=== PATIENT | female | born 1995 | race Caucasian/White ===

== ENCOUNTER 2017-07-29 05:26 | Day surgery (SDC) | payer OTHER ==
[2017-07-29 06:44] LABS: ADD MAN DIFF? NO
[2017-07-29 06:52] LABS: WHITE BLOOD COUNT 11.1 10^3/ul (4.8-10.8)
[2017-07-29 06:52] LABS: BASOPHIL # 0.1 10^3/ul (0.0-0.1); BASOPHILS % 0.4 % (0.0-2.0); EOSINOPHILS # 0.2 10^3/ul (0.0-0.5); EOSINOPHILS % 1.8 % (0.0-7.0); HEMATOCRIT 35.2 % (37.0-47.0); HEMOGLOBIN 11.9 g/dl (12.0-16.0); LYMPHOCYTES # 2.8 10^3/ul (0.8-2.9); MEAN CORPUSCULAR HEMOGLOBIN 30.6 pg (29.0-33.0); MEAN CORPUSCULAR HGB CONC 33.8 g/dl (32.0-37.0); MEAN CORPUSCULAR VOLUME 90.5 fl (82.0-101.0); MEAN PLATELET VOLUME 9.9 fl (7.4-10.4); MONOCYTES % 9.2 % (0.0-11.0); NEUTROPHIL # 7.1 10^3/ul (1.6-7.5); NEUTROPHILS % 63.3 % (39.0-77.0); PLATELET COUNT 417 10^3/UL (140-415); RED BLOOD COUNT 3.89 10^6/ul (4.20-5.40); RED CELL DISTRIBUTION WIDTH 13.2 % (11.5-14.5)
[2017-07-29] MEDS ORDERED: FAMOTIDINE 20 MG INJ (07:01)
[2017-07-29] MEDS ORDERED: MIDAZOLAM 1 MG/ML 2 ML INJ (07:01)
[2017-07-29] MEDS ORDERED: PROPOFOL 40 ML (07:01)
[2017-07-29] MEDS ORDERED: FENTAnyl 50 MCG/ML VIAL (07:02)
[2017-07-29] MEDS ORDERED: DEXAMETHASONE 4 MG/ML 1 ML INJ (07:03)
[2017-07-29] MEDS ORDERED: ROCURONIUM 50 MG INJ (07:03)
[2017-07-29] MEDS ORDERED: ONDANSETRON 4 MG INJ (07:03)
[2017-07-29] MEDS ORDERED: LIDOCAINE 2% (SDV) 5 ML INJ (07:03)
[2017-07-29] MEDS ORDERED: ACETAMINOPHEN 1000MG/100ML IV 100 ML (07:03)
[2017-07-29 07:16] LABS: ALANINE AMINOTRANSFERASE 42 IU/L (13-69); ALBUMIN 4.1 g/dl (3.3-4.9); ALBUMIN/GLOBULIN RATIO 1.36; ALKALINE PHOSPHATASE 78 IU/L (42-121); ANION GAP 14 (8-16); ASPARTATE AMINO TRANSFERASE 23 IU/L (15-46); BILIRUBIN,INDIRECT 0.1 mg/dl (0-1.1); BILIRUBIN,TOTAL 0.1 mg/dl (0.2-1.3); CARBON DIOXIDE 27 mmol/L (21-31); CHLORIDE 104 mmol/L (97-110); GLUCOSE 90 mg/dl (70-220); TOTAL PROTEIN 7.1 g/dl (6.1-8.1)
[2017-07-29 07:19] LABS: BLOOD UREA NITROGEN 8 mg/dl (7-20); CALCIUM 8.8 mg/dl (8.4-10.2); CREATININE 0.54 mg/dl (0.44-1.00); POTASSIUM 4.1 mmol/L (3.5-5.1); SODIUM 141 mmol/L (135-144)
[2017-07-29 07:22] LABS: ADD UMIC YES; UR ASCORBIC ACID NEGATIVE (NEGATIVE); UR BACTERIA FEW /HPF (NONE SEEN); UR BILIRUBIN (Dip) NEGATIVE (NEGATIVE); UR BLOOD (Dip) NEGATIVE (NEGATIVE); UR CLARITY CLOUDY (CLEAR); UR COLOR YELLOW (YELLOW); UR GLUCOSE (Dip) NEGATIVE (NEGATIVE); UR KETONES (Dip) NEGATIVE (NEGATIVE); UR LEUKOCYTE ESTERASE (Dip) 3+ Leu/ul (NEGATIVE); UR MUCUS FEW /HPF (NONE SEEN); UR NITRITE (Dip) NEGATIVE (NEGATIVE); UR RBC 4 /HPF (0-5); UR SQUAMOUS EPITHELIAL CELL MANY /HPF (FEW); UR TOTAL PROTEIN (Dip) NEGATIVE (NEGATIVE); UR UROBILINOGEN (Dip) NEGATIVE (NEGATIVE); UR WBC 14 /HPF (0-5)
[2017-07-29] MEDS ORDERED: CEFAZOLIN 1 GM INJ (07:46)
[2017-07-29] MEDS ORDERED: PHENYLephrine (100 MCG/ML) 5ML SYG (07:49)
[2017-07-29] MEDS ORDERED: ROPIVACAINE 0.2% 20 ML VIAL (08:16)
[2017-07-29] MEDS ORDERED: SUGAMMADEX SODIUM 200 MG/2 ML VIAL IV (08:31)
[2017-07-29] MEDS: BUPIVACAINE 0.5%/EPI (SDV) 30 ML INJ (08:31)
[2017-07-29] MEDS ORDERED: KETOROLAC 30 MG INJ (08:59)
[2017-07-29] MEDS ORDERED: OXYCODONE/ACETAMINOPHEN (5/325) TAB PO (09:00)
[2017-07-29] MEDS ORDERED: ONDANSETRON 4 MG INJ IV (09:00)
[2017-07-29] MEDS: morphine 2 MG INJ IV (09:10)
[2017-07-29] MEDS ORDERED: HYDROmorphONE (0.2 MG/ML) 10ML SYG IV (09:24)
[2017-07-29] MEDS: HYDROmorphONE (0.2 MG/ML) 10ML SYG IV (09:45)
[2017-07-29] MEDS: KETOROLAC 30 MG INJ IV (09:51)
[2017-07-29] MEDS: OXYCODONE/ACETAMINOPHEN (5/325) TAB PO (13:03)
== END 2017-07-29 13:41 | disposition home or self-care (01) ==
LOC: SDS 05:26
DX: K80.20 Calculus of gallbladder without cholecystitis without obstruction (principal); E66.01 Morbid (severe) obesity due to excess calories
CPT/HCPCS: 47562; 80053; 81001; 85025; 88304

== ENCOUNTER 2018-11-03 19:50 | Emergency (ER) | payer OTHER | END 2018-11-03 23:00 | disposition home or self-care (01) | LOC: FTE 19:50 | DX: J03.90 Acute tonsillitis, unspecified (principal); J32.9 Chronic sinusitis, unspecified; H66.93 Otitis media, unspecified, bilateral; H60.93 Unspecified otitis externa, bilateral | CPT/HCPCS: 99283; Z7502 ==